=== PATIENT | female | born 1960 | race Caucasian/White ===

== ENCOUNTER 2021-12-05 07:46 | Day surgery (SDC) | payer OTHER ==
[~2021-12-05 07:46] MED LIST: Sodium Chloride 0.9% 1,000 ML IV SCH
[2021-12-05] MEDS ORDERED: Sodium Chloride 0.9% 1,000 ML IV SCH (08:30)
[2021-12-05] MEDS ORDERED: Propofol 200 MG/20 ML SDV ONE (09:08)
[2021-12-05] MEDS ORDERED: fentaNYL 100 MCG/2 ML SDV ONE (09:09)
[2021-12-05] MEDS ORDERED: Midazolam 1 MG/ML 2 ML SDV ONE (09:09)
== END 2021-12-05 11:50 | disposition home or self-care (01) ==
LOC: JP.SDS 07:46
PROVIDERS: ATTEND Surgery
DX: Z12.11 Encounter for screening for malignant neoplasm of colon (principal); K63.5 Polyp of colon; K64.8 Other hemorrhoids; I10 Essential (primary) hypertension; E66.9 Obesity, unspecified; Z68.34 Body mass index [BMI] 34.0-34.9, adult; Z79.810 Long term (current) use of selective estrogen receptor modulators (SERMs); Z79.83 Long term (current) use of bisphosphonates; Z79.899 Other long term (current) drug therapy; Z88.2 Allergy status to sulfonamides; Z91.013 Allergy to seafood
CPT/HCPCS: 45380; 88305; J2250; J2704; J3010; J7030